=== PATIENT | female | born 1965 | race Caucasian/White ===

== ENCOUNTER 2018-06-29 10:06 | Outpatient (CLI) | payer MEDICAID ==
[2018-06-29 18:06] LABS: EOSINOPHILS # (AUTO) 0.1 10^3/uL (0.0-0.7); EOSINOPHILS % (AUTO) 1.2 %; HGB - HEMOGLOBIN 13.7 g/dL (12.0-16.0); LYMPHOCYTES # (AUTO) 1.6 10^3/uL (1.5-3.5); LYMPHOCYTES % (AUTO) 34.2 %; MEAN CORPUSCULAR HEMOGLOBIN 36.7 pg (27.0-31.0); MEAN CORPUSCULAR HGB CONC 33.5 g/dL (32.0-36.0); MEAN CORPUSCULAR VOLUME 109.5 fL (81.0-99.0); MEAN PLATELET VOLUME 8.1 fL (7.9-10.8); MONOCYTES # (AUTO) 0.3 10^3/uL (0.0-1.0); MONOCYTES % (AUTO) 7.3 %; NEUTROPHILS # (AUTO) 2.6 10^3/uL (1.5-6.6); NEUTROPHILS % (AUTO) 56.3 %; PLT - PLATELET COUNT 189 10^3/uL (130-450); RED BLOOD COUNT 3.75 10^6/uL (4.20-5.40); RED CELL DISTRIBUTION WIDTH 13.8 % (12.0-15.0); WHITE BLOOD COUNT 4.7 x10^3/uL (4.8-10.8)
[2018-06-29 18:09] LABS: ALBUMIN 4.4 g/dL (3.2-5.5); ALBUMIN/GLOBULIN RATIO 1.3 (1.0-2.2); BILIRUBIN,TOTAL 0.7 mg/dL (0.2-1.0); CALCIUM 8.9 mg/dL (8.5-10.3); CREATININE 0.7 mg/dL (0.4-1.0); TOTAL PROTEIN 7.9 g/dL (6.7-8.2)
== END 2018-06-29 10:07 | disposition home or self-care (01) ==
LOC: LAB.F 10:06
PROVIDERS: ATTEND Physician Assistant Medical
DX: Z51.81 Encounter for therapeutic drug level monitoring (principal); M81.0 Age-related osteoporosis without current pathological fracture
CPT/HCPCS: 36415; 80053; 82306; 85025

== ENCOUNTER 2018-07-13 11:33 | Outpatient (CLI) | payer MEDICAID ==
--- NOTE | 2018-07-13 15:14 | XRAY Report ---
Reason: FOOT PAIN,RIGHT Procedure Date: 07/13/2018 Accession Number: [id number] / [id number] Procedure: XR - Foot 3 View RT CPT Code: FULL RESULT: EXAM: RIGHT FOOT RADIOGRAPHY. EXAM DATE: 07/13/2018 11:42 AM. CLINICAL HISTORY: Foot pain, right. COMPARISON: None. TECHNIQUE: 3 views. FINDINGS: Bones: The bones are qualitatively osteopenic; this limits evaluation for underlying fractures or masses. Within these limitations, no fracture is identified. Joints: Normal. No subluxations. Soft Tissues: Normal. No soft tissue swelling. IMPRESSION: Diffusely low density of the bones. [facility]
== END 2018-07-13 11:34 | disposition home or self-care (01) ==
LOC: DI 11:33
PROVIDERS: ATTEND Physician Assistant Medical
DX: M85.871 Other specified disorders of bone density and structure, right ankle and foot (principal)

== ENCOUNTER 2018-07-20 09:19 | Outpatient (CLI) | payer MEDICAID ==
--- NOTE | 2018-07-21 19:11 | MRI Report ---
Reason: DISPLACED BICONDYLAR FRACTURE OF RIGHT TIBIA,SUB Procedure Date: 07/20/2018 Accession Number: [id number] / [id number] Procedure: MRI - Knee RT W/O CPT Code: FULL RESULT: EXAM: RIGHT KNEE MRI WITHOUT CONTRAST EXAM DATE: 07/20/2018 11:35 AM. CLINICAL HISTORY: Displaced bicondylar fracture of right tibia, sub. COMPARISON: None. TECHNIQUE: Multiplanar, multisequence T1-weighted and fluid-sensitive sequences of the knee without contrast. Other: None. FINDINGS: Bones: Subchondral fracture without a discrete osteochondral fragment at the mid lateral femoral condyle, 1.1 cm x 1.3 cm with extensive associated marrow edema (image 19 series [id number] and image 19 series 1603). Mild mid medial femoral condyle subcortical marrow edema (image 19 series 1603). Healing depressed fracture at the lateral tibial plateau, 2 cm in AP dimension and 1.9 cm in transverse dimension with a 3 mm depression and mild residual marrow edema. Articular Cartilage: Unremarkable. Medial Meniscus: The medial meniscus is intact. Lateral Meniscus: The lateral meniscus is intact. Cruciate Ligaments: The anterior and posterior cruciate ligaments are intact. Collateral Ligaments: The medial collateral and lateral collateral ligamentous structures are intact. Tendons: The quadriceps, patellar, semimembranosus, and popliteus tendons are unremarkable. Musculature: No edema or fatty atrophy. Other: Small fluid collection at the patellar recesses. No popliteal cyst. No loose bodies. The medial and lateral retinacula are intact. The subcutaneous tissues and fat pads are unremarkable. IMPRESSION: 1. Negative for a meniscus tear or internal derangement. 2. Remote healing at the lateral tibial plateau fracture, 2 cm in AP dimension and 1.9 cm in transverse dimension with 3 mm fracture depression. 3. Subchondral fracture at the mid lateral femoral condyle without discrete osteochondral fragment associated with extensive lateral femoral condyle marrow edema. 4. Focal marrow edema at the mid medial femoral condyle. [facility] MUSCULOSKELETAL RADIOLOGY SECTION
== END 2018-07-20 09:20 | disposition home or self-care (01) ==
LOC: DI 09:19
PROVIDERS: ATTEND Orthopaedic Surgery Sports Medicine
DX: S82.141G Displaced bicondylar fracture of right tibia, subsequent encounter for closed fracture with delayed healing (principal); S72.421A Displaced fracture of lateral condyle of right femur, initial encounter for closed fracture

== ENCOUNTER 2018-07-30 14:24 | Outpatient (CLI) | payer MEDICAID ==
--- NOTE | 2018-07-30 17:15 | Mammography Report ---
Reason: SCREENING MAMMO Procedure Date: 07/30/2018 Accession Number: [id number] / [id number] Procedure: GLORIA - Screening Mammo w/Armani CPT Code: FULL RESULT: EXAM: Screening Mammo w/Armani DATE: 07/30/2018 2:56 PM CLINICAL HISTORY: Routine screening. No reported personal or family history of breast cancer. TECHNIQUE: Bilateral CC and MLO views were obtained. COMPARISON: 01/31/2016 through 10/09/2009 FINDINGS: The breasts demonstrate heterogeneously dense fibroglandular parenchyma bilaterally. Bilateral breasts: There are no suspicious masses, calcifications or areas of distortion. IMPRESSION: Negative examination RECOMMENDATION: Routine annual screening unless otherwise clinically indicated. BI-RADS CATEGORY 1: Negative STANDARD QUALIFYING STATEMENTS: 1. This examination was not reviewed with the aid of Computer-Aided Detection (CAD). 2. A negative or benign imaging report should not preclude biopsy if clinically suspicious findings are present. 3. Dense breasts may obscure an underlying neoplasm. 4. This examination was reviewed with the aid of 3D breast imaging (tomosynthesis).
== END 2018-07-30 14:25 | disposition home or self-care (01) ==
LOC: DI 14:24
DX: Z12.31 Encounter for screening mammogram for malignant neoplasm of breast (principal)
CPT/HCPCS: 77063; 77067

== ENCOUNTER 2018-07-30 14:27 | Outpatient (CLI) | payer MEDICAID ==
--- NOTE | 2018-07-30 17:02 | DEXA Report ---
Reason: POSTMENOPAUSAL Procedure Date: 07/30/2018 Accession Number: [id number] / [id number] Procedure: DEX - Dexa Spine and/or Hip CPT Code: FULL RESULT: EXAM: Dexa Spine and/or Hip DATE: 07/30/2018 3:11 PM CLINICAL HISTORY: POSTMENOPAUSAL TECHNIQUE: Dual energy x-ray absorptiometry (DXA) was performed on a [employer] System. Regions measured are the AP Spine, femoral neck, and if needed forearm. COMPARISON: 01/31/2016 In accordance with the International Society for Clinical Densitometry (ISCD) guidelines, data from previous exams may be reanalyzed using current recommendations and techniques. This is done to allow a more accurate basis for comparison with the current study. FINDINGS: The data for the lumbar spine is as follows: BMD (g/cm/cm) T-SCORE Z-SCORE REGION L1 0.661 -3.9 -2.8 L2 0.729 -3.9 -2.8 L3 0.728 -3.9 -2.8 L4 0.671 -4.4 -3.3 TOTAL 0.698 -4.0 -2.9 NOTE: All evaluable vertebrae are used for classification The data for the hip is as follows: BMD (g/cm/cm) T-SCORE Z-SCORE REGION Neck 0.687 -2.5 -1.3 TOTAL 0.644 -2.9 -2.0 NOTE: The femoral neck or total proximal femur, whichever is lowest, is used for classification. DXA RESULTS SUMMARY: Spine SCAN DATE AGE BMD CHANGE VS CHANGE VS PREVIOUS PREVIOUS % 07/30/2018 53.0 0.698 -0.012 -1.7 01/31/2016 50.5 0.710 * Denotes significant change at the 95% confidence level. Denotes dissimilar scan types or analysis methods. DXA RESULTS SUMMARY: Hip SCAN DATE AGE BMD CHANGE VS CHANGE VS PREVIOUS PREVIOUS % 07[birth year]30/2018 54.0 0.644 -0.018 -2.7 01/31/2016 51.5 0.662 * Denotes significant change at the 95% confidence level. Denotes dissimilar scan types or analysis methods. IMPRESSION: THE WHO CLASSIFICATION BASED ON THE INTERNATIONAL REFERENCE STANDARD IS OSTEOPOROSIS. THE FRACTURE RISK IS HIGH. RECOMMENDATION: Patients with diagnosis of osteoporosis or osteopenia should have regular bone mineral density assessment. For those eligible for Medicare, routine testing is allowed once every 2 years. Testing frequency can be increased for patients who have rapidly progressing disease or for those who are receiving medical therapy to restore bone mass. COMMENT: World Health Organization (WHO) definitions for osteoporosis and osteopenia: NORMAL BMD: T-score at -1.0 or higher, fracture risk is low OSTEOPENIA BMD: T-score between -1.0 and -2.5, fracture risk is increased. OSTEOPOROSIS BMD: T-score at -2.5 or lower, fracture risk is high. National Osteoporosis Foundation recommends: 1. Obtain adequate dietary calcium (at least 1200 mg per day) and vitamin D (400-800 international units per day). 2. Participate, as appropriate, in regular weightbearing and muscle-strengthening exercise. 3. Avoid tobacco use and reduce alcohol and caffeine intake. 4. For more detailed information see the website at www.NOF.org.
== END 2018-07-30 14:28 | disposition home or self-care (01) ==
LOC: DI 14:27
PROVIDERS: ATTEND Physician Assistant Medical
DX: M81.0 Age-related osteoporosis without current pathological fracture (principal)
CPT/HCPCS: 77080

== ENCOUNTER 2018-09-27 12:43 | Outpatient (CLI) | payer MEDICAID ==
--- NOTE | 2018-09-27 14:14 | XRAY Report ---
Reason: FOOT PAIN,RIGHT Procedure Date: 09/27/2018 Accession Number: [id number] / [id number] Procedure: XR - Foot 3 View RT CPT Code: FULL RESULT: EXAM: RIGHT FOOT RADIOGRAPHY EXAM DATE: 09/27/2018 12:56 PM. CLINICAL HISTORY: Foot pain, right. COMPARISON: FOOT 3 VIEW RT 07/13/2018 11:35 AM. TECHNIQUE: 3 views. FINDINGS: Bones: The bones are qualitatively osteopenic; this limits evaluation for underlying fractures or masses. No definite fracture is detected. Joints: Normal. No subluxations. Soft Tissues: Normal. No soft tissue swelling. IMPRESSION: Osteopenia with no fracture detected. [facility]
== END 2018-09-27 12:44 | disposition home or self-care (01) ==
LOC: DI 12:43
PROVIDERS: ATTEND Physician Assistant Medical
DX: M79.671 Pain in right foot (principal); M85.871 Other specified disorders of bone density and structure, right ankle and foot

== ENCOUNTER 2019-11-22 09:20 | Outpatient (CLI) | payer MEDICAID ==
[2019-11-22 15:37] LABS: BASOPHILS # (AUTO) 0.1 10^3/uL (0.0-0.1); BASOPHILS % (AUTO) 1.3 %; EOSINOPHILS # (AUTO) 0.1 10^3/uL (0.0-0.7); EOSINOPHILS % (AUTO) 2.3 %; HGB - HEMOGLOBIN 13.7 g/dL (12.0-16.0); LYMPHOCYTES # (AUTO) 1.7 10^3/uL (1.5-3.5); LYMPHOCYTES % (AUTO) 36.3 %; MEAN CORPUSCULAR HGB CONC 32.7 g/dL (32.0-36.0); MONOCYTES # (AUTO) 0.3 10^3/uL (0.0-1.0); MONOCYTES % (AUTO) 6.9 %; NEUTROPHILS # (AUTO) 2.5 10^3/uL (1.5-6.6); NEUTROPHILS % (AUTO) 52.8 %; PLT - PLATELET COUNT 184 10^3/uL (130-450); RED BLOOD COUNT 3.81 10^6/uL (4.20-5.40); RED CELL DISTRIBUTION WIDTH 12.5 % (12.0-15.0); WHITE BLOOD COUNT 4.8 x10^3/uL (4.8-10.8)
[2019-11-22 15:55] LABS: ALBUMIN 4.5 g/dL (3.2-5.5); ALBUMIN/GLOBULIN RATIO 2.1 (1.0-2.2); BILIRUBIN,TOTAL 0.7 mg/dL (0.2-1.0); CREATININE 0.6 mg/dL (0.4-1.0); TOTAL PROTEIN 6.6 g/dL (6.7-8.2)
== END 2019-11-22 09:21 | disposition home or self-care (01) ==
LOC: LAB.S 09:20
PROVIDERS: ATTEND Physician Assistant
DX: Z51.81 Encounter for therapeutic drug level monitoring (principal); Z79.899 Other long term (current) drug therapy; M81.0 Age-related osteoporosis without current pathological fracture; E55.9 Vitamin D deficiency, unspecified
CPT/HCPCS: 36415; 80053; 82306; 85025

== ENCOUNTER 2022-11-24 12:54 | Outpatient (CLI) | payer MEDICAID ==
--- NOTE | 2022-11-25 09:47 | Mammography Report ---
BILATERAL DIGITAL SCREENING MAMMOGRAM 3D/2D WITH EXAGGERATED CC: 11/24/2022 CLINICAL: Routine screening. Family history of breast cancer. Comparison is made to exams dated: 07/30/2018 mammogram and 01/31/2016 mammogram - [facility]. Both breasts are heterogeneously dense, which may obscure small masses (category c / 51-75% glandular tissue). No significant masses, calcifications, or other findings are seen in either breast. There has been no significant interval change. IMPRESSION: NEGATIVE There is no mammographic evidence of malignancy. A 1 year screening mammogram is recommended. Based on the Tyrer Cuzick model (a risk assessment model) the patients lifetime risk is 17.5% and he r 10 year risk is 6.6%. According to the ACR, ACS, and NCCN guidelines, an annual breast MRI exam nba ng with mammogram is recommended if the patients lifetime risk is 20% or greater. This exam was interpreted at Station ID: [id number]. NOTE: For mammograms, a report in lay terms will be sent to the patient. Approximately 15% of breast malignancies will not be visualized mammographically. In the management of a palpable breast mass, a negative mammogram must not discourage biopsy of a clinically suspicious lesion. Electronically Signed By: Nilton ramirez/naheed:11/24/2022 15:48:12 letter sent: No_Letter ACR BI-RADS Category 1: Negative 3341F PARENCHYMAL PATTERN: (D) - The breast(s) demonstrate(s) heterogeneously dense fibroglandular sakina zimmer. BI-RADS CATEGORY: (1) - 1 Mammogram [id number] 1 year screening LATERALITY: (B)
== END 2022-11-24 12:55 | disposition home or self-care (01) ==
LOC: DI.S 12:54
DX: Z12.31 Encounter for screening mammogram for malignant neoplasm of breast (principal); Z80.3 Family history of malignant neoplasm of breast

== ENCOUNTER 2023-06-26 09:57 | Outpatient (CLI) | payer MEDICAID ==
[2023-06-26 14:37] LABS: BASOPHILS # (AUTO) 0.1 10^3/uL (0.0-0.1); BASOPHILS % (AUTO) 1.4 %; EOSINOPHILS # (AUTO) 0.1 10^3/uL (0.0-0.7); HCT - HEMATOCRIT 41.7 % (37.0-47.0); HGB - HEMOGLOBIN 13.7 g/dL (12.0-16.0); LYMPHOCYTES # (AUTO) 1.9 10^3/uL (1.5-3.5); LYMPHOCYTES % (AUTO) 36.3 %; MEAN CORPUSCULAR HEMOGLOBIN 35.4 pg (27.0-31.0); MEAN CORPUSCULAR HGB CONC 32.9 g/dL (32.0-36.0); MEAN CORPUSCULAR VOLUME 107.8 fL (81.0-99.0); MEAN PLATELET VOLUME 9.7 fL (7.9-10.8); MONOCYTES # (AUTO) 0.4 10^3/uL (0.0-1.0); NEUTROPHILS # (AUTO) 2.7 10^3/uL (1.5-6.6); NEUTROPHILS % (AUTO) 53.1 %; PLT - PLATELET COUNT 225 10^3/uL (130-450); RED BLOOD COUNT 3.87 10^6/uL (4.20-5.40); RED CELL DISTRIBUTION WIDTH 11.9 % (12.0-15.0); WHITE BLOOD COUNT 5.2 x10^3/uL (4.8-10.8)
[2023-06-26 16:12] LABS: ALBUMIN 4.4 g/dL (3.2-5.5); ALBUMIN/GLOBULIN RATIO 1.6 (1.0-2.2); ALKALINE PHOSPHATASE 86 IU/L (42-121); ALT ALANINE AMINOTRANSFERASE 13 IU/L (10-60); AST ASPARTATE AMINOTRANSFERASE 16 IU/L (10-42); BILIRUBIN,TOTAL 0.5 mg/dL (0.2-1.0); BUN - BLOOD UREA NITROGEN 8 mg/dL (6-20); CALCIUM 9.7 mg/dL (8.5-10.3); CARBON DIOXIDE - CO2 29 mmol/L (21-32); CHLORIDE 105 mmol/L (101-111); CREATININE 0.7 mg/dL (0.6-1.3); CRP - C-REACTIVE PROTEIN < 0.5 mg/dL (<0.5); GFR - MDRD 86 (>89); GLUCOSE 80 mg/dL (74-104); POTASSIUM 4.1 mmol/L (3.5-4.5); SODIUM 139 mmol/L (135-145); TOTAL PROTEIN 7.2 g/dL (6.4-8.9)
[2023-06-27 10:09] LABS: SARS-COV-2 SEMI-QUANT IGG AB 47.1 AU/mL (Neg <13.0); SARS-COV-2 SPIKE AB INTERP Positive (.)
== END 2023-06-26 09:58 | disposition home or self-care (01) ==
LOC: LAB.S 09:57
PROVIDERS: ATTEND Emergency Medicine
DX: J84.89 Other specified interstitial pulmonary diseases (principal)
CPT/HCPCS: 36415; 80053; 85025; 86140; 86769

== ENCOUNTER 2023-07-19 12:54 | Emergency (ER) | payer MEDICAID ==
[2023-07-19 13:15] VITALS: BP 119/72; O2SAT 100
== END 2023-07-19 15:15 | disposition left against medical advice (07) ==
LOC: ED 12:54
DX: Z53.21 Procedure and treatment not carried out due to patient leaving prior to being seen by health care provider (principal)

== ENCOUNTER 2023-07-20 07:18 | Emergency (ER) | payer MEDICAID ==
[2023-07-20 07:36] VITALS: BP 115/77; O2SAT 100
--- NOTE | 2023-07-20 08:01 | ED Physician Documentation ---
History of Present Illness - Stated complaint Stated Complaint: LT UPPER SHOULDER PX/TINGLY - Chief complaint Chief Complaint: Ext Problem - Additonal information Additional information: Patient 58-year-old female presenting with 2-month history of left shoulder pain. Reports left shoulder pain made worse with flexion extension of the neck x 2 months. Over the course of the last few days has developed episodes numbness tingling in her fingers. Denies any history of trauma to the neck. Denies any history of blood clots. Denies fever, chills. Reports has not seen her primary care doctor because "they cannot get me in 4 months". Review of Systems Constitutional: denies: Fever Eyes: denies: Loss of vision Ears: denies: Loss of hearing Nose: denies: Rhinorrhea / runny nose, Foreign Body Throat: denies: Dental pain / toothache Cardiac: denies: Chest pain / pressure Respiratory: denies: Dyspnea GI: denies: Abdominal Pain : denies: Dysuria Skin: denies: Rash Musculoskeletal: reports: Neck pain Neurologic: reports: Numbness PD PAST MEDICAL HISTORY - Past Medical History Past Medical History: No - Past Surgical History Past Surgical History: No - Present Medications Home Medications: Ambulatory Orders Medication Instructions Recorded Confirmed Acetaminophen [Tylenol] 650 mg PO Q6H PRN #30 tab 07/20/23 Cyclobenzaprine [Flexeril] 10 mg PO TID PRN #20 tablet 07/20/23 Ibuprofen [Motrin] 800 mg PO Q8H PRN #30 tablet 07/20/23 Lidocaine Patch 5% [Lidoderm Patch] 1 each PATCH DAILY #20 patch 07/20/23 methylPREDNISolone [Medrol] 4 mg PO DAILY #1 tab 07/20/23 - Allergies Allergies/Adverse Reactions: Allergies Allergy/AdvReac Type Severity Reaction Status Date / Time Sulfa (Sulfonamide Allergy Hives Verified 07/20/23 07:28 Antibiotics) - Social History Does the pt smoke?: Yes Smoking Status: Current every day smoker Does the pt drink ETOH?: Yes Does the pt have substance abuse?: No - POLST Patient has POLST: No PD ED PE NORMAL - General General: Alert and oriented X 3, No acute distress - HEENT HEENT: Atraumatic - Neck Neck: Other (There is no cervical tenderness to palpation. There is some tenderness to the left trapezius muscle. 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 Afebrile, he medically stable on arrival to the emergency department. Normal motor strength. Numbness to the fingertips not noted in any specific peripheral nerve distribution. She had no tenderness to palpation to her cervical spine without history of trauma to the cervical spine. She had some tenderness to the left trapezius. Additionally her symptoms were elicitable with positive Spurling sign with ear to shoulder towards the right. This is all very consistent with cervical radiculopathy. Will initiate course nonsteroidal anti- inflammatory medication, Lidoderm patches, Medrol Dosepak. Will encourage follow-up with primary care. Detailed discussion had with patient about the necessity for follow-up with primary care as well as clear return precautions given. Departure - Departure Disposition: 01 Home, Self Care Clinical Impression: Cervical radiculopathy Instructions: ED Neck Pain No Trauma, ED Cervical Radiculopathy Prescriptions: Cyclobenzaprine [Flexeril] 10 mg PO TID PRN #20 tablet PRN Reason: Spasms Lidocaine Patch 5% [Lidoderm Patch] 1 each PATCH DAILY #20 patch methylPREDNISolone [Medrol] 4 mg PO DAILY #1 tab Ibuprofen [Motrin] 800 mg PO Q8H PRN #30 tablet PRN Reason: PAIN &/OR FEVER Acetaminophen [Tylenol] 650 mg PO Q6H PRN #30 tab PRN Reason: Pain Comments: Thank you for allowing us to care for you today [facility]. Today in the emergency department you are diagnosed with cervical radiculopathy. Attaches some information about this condition. I have written you for some medications which were sent electronically to [facility] in [place]. These include medications for pain, a muscle relaxer, a course of steroid known as a Medrol Dosepak to decrease inflammation as well as a topical Lidoderm patch. Please use these as directed. Please be aware that the muscle relaxer is sedating and potentially habit-forming and should not be used if you are operating a motor vehicle, using of the machinery or you are the sole atv mechanic of young children. The cervical radiculopathy is often a result of age-related changes to the cervical spine. Is extremely important that you follow-up with your primary care doctor as this will require further care on an ongoing basis. If it anytime you have new or worsening symptoms or wish for reevaluation please return to the emergency department.
== END 2023-07-20 08:10 | disposition home or self-care (01) ==
LOC: ED 07:18
DX: M54.12 Radiculopathy, cervical region (principal); F17.200 Nicotine dependence, unspecified, uncomplicated
CPT/HCPCS: 99283; 99284

== ENCOUNTER 2023-07-22 09:14 | Outpatient (CLI) | payer MEDICAID ==
--- NOTE | 2023-07-22 18:12 | XRAY Report ---
PROCEDURE: Cervical Spine 2-3V INDICATIONS: THORACIC BACK PAIN TECHNIQUE: 3 view(s) of the cervical spine were acquired. COMPARISON: None. FINDINGS: Bones: No fractures or dislocations to the T1 level. The lateral masses of C1 appear intact on the odontoid view. No suspicious bony lesions. Left C1-C2 facet arthropathy. Mild multilevel facet arthr opathy. Soft tissues: No prevertebral soft tissue swelling. IMPRESSION: Mild cervical spondylosis. Reviewed by: Nicholas Lindsey MD on 07/22/2023 6:10 PM PDT Approved by: Nicholas Lindsey MD on 07/22/2023 6:10 PM PDT Station ID: [id number]
== END 2023-07-22 09:15 | disposition home or self-care (01) ==
LOC: DI.S 09:14
PROVIDERS: ATTEND Physician Assistant Medical
DX: M47.812 Spondylosis without myelopathy or radiculopathy, cervical region (principal)